=== PATIENT | female | born 1990 ===

== ENCOUNTER 2023-12-29 05:01 | Day surgery (SDC) | payer OTHER ==
[2023-12-23 13:47] VITALS: BMI 21.7
[2023-12-29] MEDS ORDERED: MIDAZOLAM HCL 2 MG/2 ML SINGLE DOSE VIAL ONE (11:16)
[2023-12-29] MEDS ORDERED: ELECTROLYTE-148 SOLN 1,000 ML IV SCH (11:45)
[2023-12-29 12:01] VITALS: RESP 20; TEMP 98
[2023-12-29 14:59] VITALS: BP 112/63; PULSE 58
== END 2023-12-29 14:20 | disposition home or self-care (01) ==
LOC: JASU-SURG 05:01 → EDBD 11:00 → JASU-SURG 14:20
PROVIDERS: ATTEND Urology
PROC: 0TF3XZZ Fragmentation in Right Kidney Pelvis, External Approach (ICD-10-PCS; principal; 2023-12-29 11:00)
DX: N20.0 Calculus of kidney (principal)
CPT/HCPCS: 81025